=== PATIENT | female | born 1990 | race American Indian/Alaskan Native ===

== ENCOUNTER 2022-03-06 16:04 | Observation (INO) | payer OTHER ==
[2022-03-06 18:13] LABS: Mucus,Urine 3+ /HPF
[2022-03-06 18:16] LABS: Bilirubin,Urine Negative (Negative); Color,Urine Yellow (Yellow)
[2022-03-06 18:17] LABS: Blood,Urine Negative (Negative); PH,Urine 6.5 (5.0-7.0); Urobilinogen,Urine < 2.0 mg/dL (<2.0)
[2022-03-06] MEDS ORDERED: LACTATED RINGERS 1,000 ML IV ONE (18:30)
[2022-03-06] MEDS ORDERED: DOCUSATE SODIUM 100 MG CAP PO PRN (19:36)
--- NOTE | 2022-03-06 20:26 | Vascular Lab Report ---
DUPLEX DOPPLER LOWER EXTREMITY VEINS, BILATERAL INDICATION / CLINICAL INFORMATION: c/o numbness in legs. Lower extremity pain and swelling. TECHNIQUE: Duplex doppler imaging was performed through the veins of both lower extremities using venous carla richard and other maneuvers. COMPARISON: None available. FINDINGS: Right Common Femoral vein: Negative. Right Femoral vein: Negative. Right Popliteal vein: Negative. Right Calf veins: Negative. Left Common Femoral vein: Negative. Left Femoral vein: Negative. Left Popliteal vein: Negative. Left Calf veins: Negative. Additional findings: None. IMPRESSION: 1. No sonographic evidence for DVT in either lower extremity. Signer Name: Gonzales Ontiveros MD Signed: 03/06/2022 8:22 PM Workstation Name: [id number]
--- NOTE | 2022-03-06 20:30 | Ultrasound Report ---
ULTRASOUND BIOPHYSICAL PROFILE INDICATION / CLINICAL INFORMATION: well being. COMPARISON: None available. FINDINGS: BREATHING MOVEMENT = 2 GROSS BODY MOVEMENT = 2 TONE = 2 QUALITATIVE AMNIOTIC FLUID VOLUME = 2 TOTAL BIOPHYSICAL SCORE = 88 AMNIOTIC FLUID INDEX (cm) = 9.3 PRESENTATION: Cephalic. HEART RATE (beats per minute): 152 IMPRESSION: 1. biophysical profile = 05/12 ULTRASOUND OBSTETRIC Indication: well being Findings: There is a single intrauterine . BPD = 7.54 cm = 30 weeks, 2 day(s). Head circumference = 20.6 cm = 31 weeks, 4 day(s). Abdominal circumference = 27.0 cm = 31 weeks, 1 day(s). Femur length = 6.4 cm = 33 weeks, 1 day(s). Overall estimated sonographic age = 31 weeks, 4 day(s). heart rate is beats per minute. Estimated weight is grams position is breech. Cervix appears closed. movement is present. Amniotic fluid volume appears normal. Impression: 1. Single living intrauterine with estimated sonographic age of 31 weeks, 4 day(s). 2. No sonographic abnormality identified. Signer Name: Gonzales Ontiveros MD Signed: 03/06/2022 8:26 PM Workstation Name: [email or web address]
[2022-03-06] MEDS ORDERED: LACTATED RINGERS 1,000 ML ONE (21:47)
[2022-03-06 21:58] LABS: Hematocrit 27.2 % (30.3-42.9); Hemoglobin 9.1 gm/dl (10.1-14.3); Mean Corpuscular HGB Conc 34 % (30-34); Mean Corpuscular Volume 82 fl (79-97); Platelet Count 240 K/mm3 (140-440); Red Blood Count 3.34 M/mm3 (3.65-5.03); Red Cell Distribution Width 13.6 % (13.2-15.2)
[2022-03-06 22:19] LABS: Alanine Aminotransferase 9 units/L (7-56); Albumin 3.4 g/dL (3.9-5); Blood Urea Nitrogen 5 mg/dL (7-17); Hemolysis Index 5
[2022-03-06 22:30] LABS: BUN/Creatinine Ratio 7
[2022-03-06 22:42] LABS: Band Neutrophils # (Manual) 0.2 K/mm3; Basophils % (Manual) 0 % (0.0-1.8); Eosinophils % (Manual) 0 % (0.0-4.3); Total Cells Counted 100
[2022-03-06 22:43] LABS: Anisocytosis 1+; Hypochromasia 1+; Platelet Estimate Consistent w Auto
[2022-03-06] MEDS: ACETAMINOPHEN 325 MG TAB PO PRN (23:05)
[2022-03-07 07:29] VITALS: BP 134/76
--- NOTE | 2022-03-07 08:15 | History and Physical Report ---
History of Present Illness Date of examination: 03/07/22 Date of admission: 03/06/22 19:39 Chief complaint: This is a 31 y/o now 32 weeks gestation. KELLI 04-25-2024. She was seen in urgent care yesterday and sent home. She is seen by [place] providers. C/O feeling weak and requested Covid test which was done this morning. Her rapid Covid is positive. She states that she feels better and wants to go home. She has been afebrile since admission. Reactive NST. Will discharge home with F/U to be done by her provider on Thursday History of present illness: SEE CC Past History Past Medical History: no pertinent history Past Surgical History: no surgical history Family/Genetic History: none - Obstetrical History Expected Date of Delivery: 04/25/22 Actual Gestation: 33 Week(s) 0 Day(s) : 4 Medications and Allergies Allergies Allergy/AdvReac Type Severity Reaction Status Date / Time No Known Allergies Allergy Unverified 03/06/22 17:10 Active Meds: Active Medications Acetaminophen (Acetaminophen 325 Mg Tab) 650 mg PO Q4H PRN PRN Reason: Pain MILD(1-3)/Fever >100.5/ATKINS Last Admin: 03/06/22 23:05 Dose: 650 mg Docusate Sodium (Docusate Sodium 100 Mg Cap) 100 mg PO Q12H PRN PRN Reason: Constipation Multivitamins/Iron/Calcium ( Isl83-Up Fumarate-Folic Acid Vit Tab) 1 each PO QDAY CLAUDIA Review of Systems All systems: negative - Vital Signs Vital signs: Vital Signs Pulse Pulse Ox 124 H 97 03/06/22 17:24 03/06/22 17:24 Temp Pulse Resp BP Pulse Ox 98.7 F 105 H 18 134/76 92 03/07/22 07:31 03/07/22 07:37 03/07/22 07:31 03/07/22 07:31 03/07/22 07:37 - Physical Exam Breasts: Positive: deferred Cardiovascular: Regular rate Lungs: Positive: Clear to auscultation Abdomen: Positive: normal appearance Uterus: Positive: enlarged - Obstetrical FHR: category 1 Uterine Contraction Monitor Mode: External Uterine Contraction Pattern: Absent Results Result Diagrams: 03/06/22 21:35 03/06/22 21:35 Abnormal lab results 03/06/22 03/06/22 03/06/22 Range/Units 21:35 21:35 Unknown RBC 3.34 L (3.65-5.03) M/mm3 Hgb 9.1 L (10.1-14.3) gm/dl Hct 27.2 L (30.3-42.9) % MCH 27 L (28-32) pg Seg Neuts % (Manual) 86.0 H (40.0-70.0) % Lymphocytes % (Manual) 2.0 L (13.4-35.0) % Monocytes % (Manual) 10.0 H (0.0-7.3) % Lymphocytes # (Manual) 0.2 L (1.2-5.4) K/mm3 Sodium 136 L (137-145) mmol/L Carbon Dioxide 18 L (22-30) mmol/L BUN 5 L (7-17) mg/dL Total Protein 6.1 L (6.3-8.2) g/dL Albumin 3.4 L (3.9-5) g/dL U Epithel Cells (Auto) 27.0 H (0-13.0) /HPF All other labs normal. Assessment and Plan A: Covid + at 32 weeks gestation P: Discharge home F/U with provider on Thursday or reschedule due to quarantine Precautions given
--- NOTE | 2022-03-07 08:21 | Discharge Summary ---
Providers - Providers Date of Admission: 03/06/22 19:39 Date of discharge: 03/07/22 Attending physician: RANDY ARORA Primary care physician: RANDY ARORA Hospitalization Reason for admission: other Condition at discharge: Good Disposition: 01 HOME / SELF CARE / HOMELESS - Discharge Diagnoses (1) COVID-19 affecting in third trimester Status: Acute Plan - Provider Discharge Summary Activity: routine Additional instructions: [] Smoking cessation referral if applicable(refer to patient education folder for contact #) [] Refer to [facility]'s [facility] Booklet Call your doctor immediately for: * Fever > 100.5 * Heavy vaginal bleeding ( >1 pad per hour) * Severe persistent headache * Shortness of breath * Reddened, hot, painful area to leg or breast * Drainage or odor from incision. * Keep incision clean and dry at all times and follow doctor's instructions regarding bathing/showering - Follow up plan Follow up: RANDY ARORA MD [Primary Care Provider] - 7 Days Forms: [facility] Discharge Summary
[2022-03-07] MEDS: ACETAMINOPHEN 325 MG TAB PO PRN (08:30)
[2022-03-07] MEDS ORDERED: PRENATAL VIT27-FE FUMARATE-FOLIC ACID VIT TAB PO SCH (10:00)
== END 2022-03-07 08:37 | disposition home or self-care (01) ==
LOC: TRG 16:04 → APU 16:04 → TRG 19:36 → LD 19:39
PROVIDERS: ADMIT Obstetrics & Gynecology; ATTEND Obstetrics & Gynecology
DX: O98.513 Other viral diseases complicating pregnancy, third trimester (principal); U07.1 COVID-19; O26.893 Other specified pregnancy related conditions, third trimester; R53.1 Weakness; Z3A.32 32 weeks gestation of pregnancy
CPT/HCPCS: 36415; 76816; 76819; 80053; 81001; 85025; 86850; 86900; 86901; 87040; 93970; G0378; U0003; 76815; 85007